=== PATIENT | female | born 1970 | race Two or more races ===

== ENCOUNTER 2019-10-13 22:53 | Emergency (ER) | payer MEDICAID ==
[~2019-10-13] VITALS: Ht 160 cm; Wt 74.5 kg
[2019-10-13 23:03] VITALS: BP 150/76
[2019-10-13 23:39] LABS: HCG UR SG 1.013 (1.003-1.030)
[2019-10-13 23:56] LABS: CULTURE INDICATED? YES; MICROSCOPIC INDICATED
[2019-10-14] MEDS ORDERED: CEFDINIR 300 MG CAPSULE ONE (00:20)
[2019-10-14] MEDS ORDERED: PHENAZOPYRIDINE 200 MG TABLET ONE (00:20)
[2019-10-14] MEDS ORDERED: CEFDINIR 300 MG CAPSULE PO ONE (00:30)
[2019-10-14] MEDS ORDERED: PHENAZOPYRIDINE 200 MG TABLET PO ONE (00:30)
== END 2019-10-14 00:43 | disposition home or self-care (01) ==
LOC: ED 10-14 00:30
DX: N30.00 Acute cystitis without hematuria (principal)
CPT/HCPCS: 81001; 81025; 87077; 87086; 87186; 99283